=== PATIENT | female | born 1990 | race Caucasian/White ===

== ENCOUNTER 2017-03-02 20:08 | Emergency (ER) | payer MEDICAID ==
[~2017-03-02] VITALS: Ht 165.1 cm; Wt 158.4 kg
[~2017-03-02 20:08] MED LIST: NONE PER PT
[2017-03-02] MEDS ORDERED: ALBUTEROL SULFATE 2.5 MG/3 ML ONE (20:25)
[2017-03-02] MEDS ORDERED: ALBUTEROL SULFATE 2.5 MG/3 ML NPPB ONE (20:30)
[2017-03-02] MEDS ORDERED: ASPI1TAB51 PO (21:23)
[2017-03-02] MEDS ORDERED: MORPHINE SULFATE 4 MG/ML, 1ML ONE (21:28)
[2017-03-02] MEDS ORDERED: ONDANSETRON 2MG/ML, 2ML ONE (21:28)
[2017-03-02] MEDS ORDERED: ONDANSETRON 2MG/ML, 2ML IVPush ONE (21:30)
[2017-03-02] MEDS ORDERED: MORPHINE SULFATE 4 MG/ML, 1ML IVPush PRN (21:30)
[2017-03-02 21:38] LABS: HCG UR OBC PASS
[2017-03-02 22:06] LABS: ASPARTATE AMINO TRANSFERASE 13 U/L (15-37); BLOOD UREA NITROGEN 11 mg/dL (7-18)
[2017-03-02 22:30] VITALS: BP 146/66
== END 2017-03-02 22:58 | disposition home or self-care (01) ==
LOC: ED 22:52
DX: J20.9 Acute bronchitis, unspecified (principal); R10.32 Left lower quadrant pain; R30.0 Dysuria; J45.909 Unspecified asthma, uncomplicated
CPT/HCPCS: 36415; 71020; 80053; 81003; 81025; 85025; 93005; 96374; 96375; 99285; J2405

== ENCOUNTER 2017-09-19 19:45 | Emergency (ER) | payer MEDICAID ==
[~2017-09-19] VITALS: Ht 165.1 cm; Wt 165.7 kg
[~2017-09-19 19:45] MED LIST changes: +ASPI1TAB51 PO
[2017-09-19 20:48] LABS: HEMATOCRIT 40.3 % (34.6-47.8); HEMOGLOBIN 13.4 g/dL (11.7-16.4); WHITE BLOOD COUNT 10.6 x10^3/uL (3.4-10)
[2017-09-19 21:00] LABS: BLOOD UREA NITROGEN 11 mg/dL (7-18)
[2017-09-19] MEDS ORDERED: PROCHLORPERAZINE 5 MG/ML, 2ML ONE ×2 (22:21→22:49)
[2017-09-19] MEDS ORDERED: DIPHENHYDRAMINE 50 MG/ML, 1ML ONE (22:21)
[2017-09-19] MEDS ORDERED: SODIUM CHLORIDE 0.9% 1,000ML IVBOLUS ONE (22:30)
[2017-09-19] MEDS ORDERED: PROCHLORPERAZINE 5 MG/ML, 2ML IVPush ONE (22:30)
[2017-09-19] MEDS ORDERED: SODIUM CHLORIDE FLUSH 10ML SYR IVF ONE (22:30)
[2017-09-19] MEDS: DIPHENHYDRAMINE 50 MG/ML, 1ML IVPush ONE ×2 (22:42→22:50)
[2017-09-19 23:30] VITALS: BP 156/78
== END 2017-09-20 00:43 | disposition home or self-care (01) ==
LOC: ED 09-20 00:35
DX: S06.0X9A Concussion with loss of consciousness of unspecified duration, initial encounter (principal); L02.413 Cutaneous abscess of right upper limb; I10 Essential (primary) hypertension; X58.XXXA Exposure to other specified factors, initial encounter; Y93.89 Activity, other specified; Y92.89 Other specified places as the place of occurrence of the external cause; Y99.8 Other external cause status
CPT/HCPCS: 36415; 70450; 80048; 82040; 84703; 85025; 96361; 96374; 99285; J0780; J7030; J1200

== ENCOUNTER 2018-09-13 21:35 | Emergency (ER) | payer MEDICAID, OTHER ==
[~2018-09-13] VITALS: Ht 162.6 cm; Wt 160.6 kg
[2018-09-13 21:37] VITALS: BP 130/75
[2018-09-13] MEDS ORDERED: DEXAMETHASONE INTENSOL 1 MG/ML ORAL SOL PO ONE (22:00)
[2018-09-13] MEDS ORDERED: HYDROcodone/APAP 5/325 TABLET PO ONE (22:00)
[2018-09-13] MEDS ORDERED: ACETAMINOPHEN 325 MG TABLET ONE (22:12)
[2018-09-13] MEDS ORDERED: DEXAMETHASONE 4 MG/ML, 1ML ONE (22:12)
[2018-09-13] MEDS ORDERED: HYDROcodone/APAP 5/325 TABLET ONE (22:13)
[2018-09-13] MEDS ORDERED: ACETAMINOPHEN 325 MG TABLET PO ONE (22:30)
[2018-09-13] MEDS ORDERED: DEXAMETHASONE 4 MG/ML, 1ML PO ONE (22:30)
== END 2018-09-13 22:27 | disposition home or self-care (01) ==
LOC: ED 22:00
DX: J02.0 Streptococcal pharyngitis (principal); J45.909 Unspecified asthma, uncomplicated; I10 Essential (primary) hypertension; F41.1 Generalized anxiety disorder; Z72.9 Problem related to lifestyle, unspecified
CPT/HCPCS: 99284

== ENCOUNTER 2019-10-20 11:29 | Emergency (ER) | payer MEDICAID ==
[~2019-10-20] VITALS: Ht 165.1 cm; Wt 159.0 kg
[2019-10-20 11:42] VITALS: BP 164/70
[2019-10-20] MEDS ORDERED: IBUPROFEN 200 MG TABLET PO ONE (12:00)
--- NOTE | 2019-10-20 12:05 | NUR ---
PT HERE WITH C/O LEFT ANKLE PAIN, DENIES TRAUMA.
[2019-10-20] MEDS ORDERED: IBUPROFEN 200 MG TABLET ONE (12:07)
--- NOTE | 2019-10-20 12:10 | NUR ---
PT MEDICATED PER ORDERS.
--- NOTE | 2019-10-20 14:07 | NUR ---
Patient/Caregiver given discharge instructions and they have confirmed that they understand the instructions. Patient ambulatory WITH CRUTCHES with steady gait.
== END 2019-10-20 14:20 | disposition home or self-care (01) ==
LOC: ED 13:42
DX: M25.572 Pain in left ankle and joints of left foot (principal); M79.672 Pain in left foot; I10 Essential (primary) hypertension; J45.909 Unspecified asthma, uncomplicated
CPT/HCPCS: 99284